=== PATIENT | female | born 1970 | race Hispanic/Latino ===

== ENCOUNTER 2019-08-29 18:23 | Emergency (ER) | payer BC ==
[~2019-08-29] VITALS: Ht 152.4 cm; Wt 60.3 kg
[2019-08-29] MEDS ORDERED: CLONIDINE HCL 0.1 MG TAB PO ONE (19:00)
[2019-08-29] MEDS ORDERED: LIDOCAINE HCL 1% LOCAL INJ 20 ML VIAL ONE (19:22)
[2019-08-29] MEDS ORDERED: CEFTRIAXONE SOD 500 MG VIAL ONE (19:24)
[2019-08-29] MEDS ORDERED: CEFTRIAXONE SOD 500 MG VIAL IM ONE (19:45)
[2019-08-29 22:12] VITALS: BP 174/91
== END 2019-08-29 20:07 | disposition home or self-care (01) ==
LOC: FSED 18:23
DX: R10.2 Pelvic and perineal pain (principal); N30.90 Cystitis, unspecified without hematuria; D25.1 Intramural leiomyoma of uterus
CPT/HCPCS: 81003; 81025; 96372; 99283; J0696; J2001